=== PATIENT | female | born 1960 | race Two or more races ===

== ENCOUNTER → 2016-10-25 | Outpatient (CLI) | payer OTHER ==
[~2016-10-25] MED LIST: FIORICET 50-321 EACH PO; IRON TABLETS1 TAB PO; NITROFURANTOIN100 M3
--- NOTE | ~2016-10-25 | MY29 ---
[facility] A Service of [facility] RADIOLOGY TEXT RESULTS PATIENT: SULMA HONEYCUTT LOCATION: [facility] : 58 UNIT #: [id number] AGE: [address]: Robin Costa MD SEX: F ORDER DR: [id number] [facility]. [place], [place] [address] [id number] O MR#: [id number] #: [id number] NAME: SULMA HONEYCUTT : 1960 SEX: F STUDY DATE/TIME: 10/25/2016 12:09 UNIT: [facility] ROOM: STUDY DESCRIPTION: [facility] SCREENING W/ CAD BILAT Ordering Physician: Robin Dahl M.D. MEDICAL IMAGING REPORT This report is preliminary unless electronic signature is present EXAM Digital screening mammogram 10/25/2016 HISTORY 56-year-old woman, no risk elevation. Annual screening. COMPARISON STUDIES Mammograms date to 09/11/2011 with most recent 10/13/2015. FINDINGS Digital imaging of each breast was completed utilizing screening protocol. Review includes FDA-approved CAD device. Breast parenchyma is predominantly fatty replaced bilaterally. I see no suspicious mass. There are no interval occurring microcalcifications and no suspicious architectural deformity. IMPRESSION Negative mammogram. Annual screening recommended. BIRADS: 1 Negative. Patients over the age of 40 are entered into a reminder system with target due date for the next mammogram. A result letter will also be sent to the patient. Dictated by... Casey Acosta M.D. THIS IS AN ELECTRONICALLY VERIFIED REPORT Casey Acosta M.D. at 10/26/2016 8:11 AM JBB/pcl [facility] A Service of [facility] RADIOLOGY TEXT RESULTS PATIENT: SULMA HONEYCUTT LOCATION: [facility] : 58 UNIT #: [id number] AGE: [address]: Robin Costa MD SEX: F ORDER DR: TD: 10/25/2016 19:47 JOB #: [id number] MEDICAL IMAGING REPORT Page 1 of 1 COPY
== END | disposition home or self-care (01) ==
LOC: CWCC 11:25
DX: Z12.31 Encounter for screening mammogram for malignant neoplasm of breast (principal)
CPT/HCPCS: G0202